=== PATIENT | male | born 1970 | race Caucasian/White ===

== ENCOUNTER 2016-12-02 14:59 | Emergency (ER) | payer SELFPAY ==
[~2016-12-02] VITALS: Ht 175.3 cm; Wt 111.6 kg
[~2016-12-02 14:59] MED LIST: ADVAIR 100/501 DISK IH; ALBUTEROL SULF8.5 GM IH; AMOXICILLIN875 MG PO; AZITHROMYCIN250 MG1 PO; BACTRIM,SEPT1 TABLET PO; CARAFATE1 GM PO; CEFUROXIME500 MG PO; CHOLESTEROL MED PO; CLEOCIN300 MG PO; ERGOCALCIF50000 UNIT PO; FIORICET,ESG1 TABLET PO; FLEXERIL10 MG PO; FLOVENT 22120 INHALA IH; IBUPROFEN800 MG PO; KEFLEX500 MG PO; LATUDA40 MG PO; LOPID600 MG PO; Levaquin PO; MEDROL DOSEPAK4 MG PO; MOBIC15 MG PO; MOTRIN IB200 MG PO; NAPROSYN500 MG PO; NEURONTIN600 MG PO; NEURONTIN800 MG PO; PANTOPRAZOLE SO40 MG PO; PERCOCET 5/31 TABLET PO; PHENERGAN-CODE120 ML PO; PREDNISONE10 MG PO; PROAIR HFA8.5 GM IH; PROVENTIL HFA6.7 GM IH; ROBITUSSIN AC,T10 ML PO; TOPAMAX15 MG PO; TOPAMAX200 MG PO; TRAZODONE HCL150 MG PO; TYLENOL EXTRA500 MG PO; ULTRAM50 MG PO; VENTOLIN HFA18 GM IH; VICODIN,LORT1 TABLET PO; WELLBUTRIN SR200 MG PO; WELLBUTRIN75 MG PO; Wellbutrin SR PO; XANAX1 MG PO; ZANTAC150 MG PO; ZITHROMAX250 MG PO; ZITHROMAX500 MG PO; predniSONE PO
[2016-12-02] MEDS ORDERED: SKELAXIN800 MG PO (15:31)
[2016-12-02] MEDS ORDERED: NAPROXEN500 MG PO (15:31)
[2016-12-02] MEDS ORDERED: PERCOCET 5/31 TABLET PO (15:31)
[2016-12-02 15:42] VITALS: BP 167/104
== END 2016-12-02 15:49 | disposition home or self-care (01) ==
LOC: EME 14:59
DX: S39.012A Strain of muscle, fascia and tendon of lower back, initial encounter (principal); X50.9XXA Other and unspecified overexertion or strenuous movements or postures, initial encounter; Y93.01 Activity, walking, marching and hiking; J45.909 Unspecified asthma, uncomplicated; J44.9 Chronic obstructive pulmonary disease, unspecified; K21.9 Gastro-esophageal reflux disease without esophagitis; Z86.14 Personal history of Methicillin resistant Staphylococcus aureus infection; F17.200 Nicotine dependence, unspecified, uncomplicated
CPT/HCPCS: 99281; 99284; J1885

== ENCOUNTER 2017-07-05 22:37 | Emergency (ER) | payer SELFPAY ==
[~2017-07-05] VITALS: Ht 177.8 cm; Wt 111.1 kg
[~2017-07-05 22:37] MED LIST changes: +NAPROXEN500 MG PO; +SKELAXIN800 MG PO
[2017-07-05 22:57] VITALS: BP 176/96
[2017-07-05] MEDS ORDERED: CLEOCIN300 MG PO (23:32)
[2017-07-05] MEDS ORDERED: NORCO 5/3251 TABLET PO (23:33)
== END 2017-07-06 00:03 | disposition home or self-care (01) ==
LOC: RME 22:37 → EME 22:37 → RME 07-06 00:03
PROC: 0C95XZZ Drainage of Upper Gingiva, External Approach (ICD-10-PCS; principal; 2017-07-05)
DX: K04.7 Periapical abscess without sinus (principal); K08.89 Other specified disorders of teeth and supporting structures; F17.200 Nicotine dependence, unspecified, uncomplicated
CPT/HCPCS: 99281; 99283

== ENCOUNTER 2018-01-06 00:18 | Emergency (ER) | payer SELFPAY ==
[~2018-01-06] VITALS: Ht 177.8 cm; Wt 109.8 kg
[~2018-01-06 00:18] MED LIST changes: +NORCO 5/3251 TABLET PO
[2018-01-06 00:41] LABS: HEMATOCRIT 43.5 % (38.0-50.0); HEMOGLOBIN 14.4 G/DL (12.5-16.6); MCH 27.9 PG (29.0-34.0); MCHC 33.1 G/DL (30.0-36.0); MCV 84.3 FL (86-99); PLATELET COUNT 310 K/uL (156-360); RBC DIS.WIDTH-CV 14.5 % (11.8-14.6); RBC DIS.WIDTH-SD 44.3 % (39-53); RED BLOOD COUNT 5.16 M/uL (4.00-5.50)
[2018-01-06 00:55] LABS: CHLORIDE 105 mEq/L (99-109); POTASSIUM 4.2 mEq/L (3.7-5.4); SODIUM 139 mEq/L (136-147)
[2018-01-06 00:57] LABS: GLUCOSE 97 mg/dL (70-99)
[2018-01-06 01:01] LABS: GFR ESTIMATE (CALCULATED) > 59 mL/min/ (58.99-99999)
[2018-01-06 01:02] LABS: UREA NITROGEN (BUN) 9 mg/dL (9-23)
[2018-01-06 04:30] LABS: TROP-I INTERPRETATION NEGATIVE; TROPONIN-I < 0.01 ng/mL (0.0-0.30)
[2018-01-06] MEDS ORDERED: PROVENTIL HFA6.7 GM IH (05:23)
[2018-01-06] MEDS ORDERED: ZITHROMAX Z-PA250 MG PO (05:23)
[2018-01-06] MEDS ORDERED: PREDNISONE50 MG PO (05:23)
[2018-01-06 06:03] VITALS: BP 132/89
== END 2018-01-06 06:06 | disposition home or self-care (01) ==
LOC: EME 00:18
DX: J20.9 Acute bronchitis, unspecified (principal); J43.9 Emphysema, unspecified; F17.200 Nicotine dependence, unspecified, uncomplicated; Z71.6 Tobacco abuse counseling; K21.9 Gastro-esophageal reflux disease without esophagitis; F41.9 Anxiety disorder, unspecified; F32.9 Major depressive disorder, single episode, unspecified
CPT/HCPCS: 71046; 80048; 84484; 85027; 93005; 94640; 99281; 99284

== ENCOUNTER 2018-03-29 07:43 | Inpatient (IN) | payer SELFPAY ==
[~2018-03-29] VITALS: Ht 175.3 cm; Wt 111.2 kg
[~2018-03-29 07:43] MED LIST changes: +PREDNISONE50 MG PO; +ZITHROMAX Z-PA250 MG PO
[2018-03-29 08:22] LABS: HEMATOCRIT 38.9 % (38.0-50.0); HEMOGLOBIN 12.9 G/DL (12.5-16.6); MCH 27.9 PG (29.0-34.0); MCHC 33.2 G/DL (30.0-36.0); PLATELET COUNT 312 K/uL (156-360); RBC DIS.WIDTH-CV 14.9 % (11.8-14.6); RBC DIS.WIDTH-SD 45.2 % (39-53); RED BLOOD COUNT 4.63 M/uL (4.00-5.50); WHITE BLOOD COUNT 14.8 K/uL (4.1-10.2)
[2018-03-29 08:33] LABS: CHLORIDE 108 mEq/L (99-109); POTASSIUM 4.4 mEq/L (3.7-5.4); SODIUM 141 mEq/L (136-147)
[2018-03-29 08:35] LABS: GLUCOSE 144 mg/dL (70-99)
[2018-03-29 08:39] LABS: CREATININE 0.9 mg/dL (0.6-1.3); GFR ESTIMATE (CALCULATED) > 59 mL/min/ (58.99-99999)
[2018-03-29 08:40] LABS: UREA NITROGEN (BUN) 8 mg/dL (9-23)
[2018-03-29 08:45] LABS: TROP-I INTERPRETATION NEGATIVE; TROPONIN-I < 0.01 ng/mL (0.0-0.30)
[2018-03-29 10:28] VITALS: BP 143/78
[2018-03-29 15:54] VITALS: BP 159/85
[2018-03-29 19:18] VITALS: BP 176/67
[2018-03-29 23:20] VITALS: BP 137/68
[2018-03-30 03:27] VITALS: BP 159/88
[2018-03-30 05:46] LABS: HEMATOCRIT 41.5 % (38.0-50.0); HEMOGLOBIN 13.6 G/DL (12.5-16.6); MCH 27.5 PG (29.0-34.0); MCHC 32.8 G/DL (30.0-36.0); PLATELET COUNT 349 K/uL (156-360); RBC DIS.WIDTH-CV 14.4 % (11.8-14.6); RBC DIS.WIDTH-SD 43.9 % (39-53); RED BLOOD COUNT 4.94 M/uL (4.00-5.50)
[2018-03-30 06:12] LABS: CHLORIDE 104 MEQ/L (99-109); CREATININE 0.9 MG/DL (0.6-1.3); GFR ESTIMATE (CALCULATED) > 59 mL/min/ (58.99-99999); GLUCOSE 191 mg/dL (70-99); POTASSIUM 4.8 MEQ/L (3.7-5.4); SODIUM 138 MEQ/L (136-147); UREA NITROGEN (BUN) 10 mg/dL (9-23)
[2018-03-30 07:31] VITALS: BP 114/83
[2018-03-30] MEDS ORDERED: PREDNISONE10 MG PO (11:39)
[2018-03-30] MEDS ORDERED: ZITHROMAX500 MG PO (11:39)
[2018-03-30] MEDS ORDERED: VENTOLIN HFA18 GM IH (11:39)
[2018-03-30] MEDS ORDERED: SYMBICORT60 INHALAT IH (11:39)
[2018-03-30 11:56] VITALS: BP 173/81
== END 2018-03-30 14:21 | disposition home or self-care (01) | DRG 203 ==
LOC: EME 07:43 → EDOF 09:09 → ENRESERV 09:11 → 5SOUTH 10:17
PROVIDERS: Internal Medicine; Nurse Practitioner Family
DX: J45.901 Unspecified asthma with (acute) exacerbation (principal); I10 Essential (primary) hypertension; D72.829 Elevated white blood cell count, unspecified; T38.0X5A Adverse effect of glucocorticoids and synthetic analogues, initial encounter; F17.210 Nicotine dependence, cigarettes, uncomplicated; E66.9 Obesity, unspecified; Z68.36 Body mass index [BMI] 36.0-36.9, adult; Z91.19 Patient's noncompliance with other medical treatment and regimen
CPT/HCPCS: 71046; 80048; 84484; 85027; 93005; 94640; 94799; 99281; 99285; J1644; J2930; J7030